=== PATIENT | female | born 1955 | race Caucasian/White ===

== ENCOUNTER 2017-07-08 12:46 | Day surgery (SDC) | payer OTHER ==
[~2017-07-08] VITALS: Ht 160 cm; Wt 83.5 kg
[2017-07-08 13:29] VITALS: Ht 160 cm; Wt 83.5 kg
[2017-07-08] MEDS ORDERED: OMEGA-3 (13:31)
[2017-07-08 14:08] VITALS: BP 134/63; PULSE 58; RESP 19
[2017-07-08] MEDS ORDERED: FENTAnyl 50 MCG/ML VIAL ONE (15:06)
[2017-07-08] MEDS ORDERED: MIDAZOLAM 1 MG/ML 2 ML INJ ONE ×2 (15:07)
--- NOTE | 2017-07-08 15:43 | OPPN ---
Date/Time of Note Date/Time of Note DATE: 07/08/17 TIME: 15:38 Multiple polyps removed recommendation I wait for biopsy report Repeat colonoscopy in 6 months to one year depending on the biopsy reports Operative Report Preoperative Diagnosis screening Postoperative Diagnosis Multiple polyps in the colon 4 mm polyp at hepatic flexure 3 mm polyp at splenic flexure At 30 cm 2 mm polyp At 20 cm 4 polyps removed including one polyp it was 5 mm biopsy also done using cold snare technique The ranged from 2 mm to 5 mm Operation/Procedure Performed colonoscopy polypectomy multiple biopsy Surgeon see signature line customer assistant none Anesthesia: moderate sedation (versed 2mg/fentanyl 50mcg) Estimated blood loss: none Transfusion Required none Specimen See nursing note all the biopsies were placed in different jars indicating the position of these polyps in the colon Sent to his Grafts/Implants none Complications none JESSICA KAUFAMN MD Jul 08, 2017 15:43
--- NOTE | 2017-07-09 07:12 | GILP ---
DATE OF PROCEDURE: PREOPERATIVE DIAGNOSIS: Screening colonoscopy. POSTOPERATIVE DIAGNOSES: Multiple polyps in the colon, a 4-mm polyp at hepatic flexure, 3-mm polyp at splenic flexure, 2-mm polyp at 30 cm, 4 polyps at 20 cm level and one of them was 5 mm, rest of t hem were 2 to 3 mm. PROCEDURE DONE: Colonoscopy, multiple polyps removed by biopsy and also cold snare. DESCRIPTION OF PROCEDURE: After obtaining informed consent, the patient was sedated with 2 mg IV Ve rsed and 50 mcg of fentanyl. Advanced an Olympus video colonoscope all the way to cecum. Ileocecal valve and appendiceal opening identified and in the hepatic flexure, a 4-mm polyp was found. This was removed by piecemeal with biopsy forceps, a 3-mm polyp at splenic flexure was taken out by biops y forceps. At 30 cm, a 2-mm polyp was removed easily. At 20 cm, there was a 5-mm polyp. This was biopsied and then it was very flat, removed by cold snare technique by shaving it off. Sent all the specimens and another totally 3 more small polyps 2 to 5 mm were removed by biopsy forceps and plac ed in the same bottle as they were all at 20 cm level and the rectum was unremarkable. Removal of s cope, patient had no complication. PLAN: We will wait for biopsy report, follow up as outpatient and recommend a repeat colonoscopy in 6 months and also await for biopsy report to make that decision also. Follow up in 2 weeks. Dictated By: JESSICA LINTON Conf#: [id number] DID#: [id number] CC: JESSICA KAUFMAN M.D.; [place] Unknown;*EndCC*
== END 2017-07-08 15:41 | disposition home or self-care (01) ==
LOC: GIL 12:46
PROVIDERS: ATTEND Internal Medicine
DX: Z12.11 Encounter for screening for malignant neoplasm of colon (principal); D12.3 Benign neoplasm of transverse colon; D12.5 Benign neoplasm of sigmoid colon
CPT/HCPCS: 45380; 45385; 88305; J2250; J3010; Z7610